=== PATIENT | female | born 1970 | race Caucasian/White ===

== ENCOUNTER 2017-02-25 07:25 | Emergency (ER) | payer MEDICAID ==
[2017-02-25 08:22] LABS: PLATELET COUNT 360 x10^3mcL (130-400); RED CELL DISTRIBUTION WIDTH 13.7 % (11.5-14.5)
[2017-02-25 08:26] LABS: CALCIUM 8.6 mg/dL (8.5-10.1); CARBON DIOXIDE 26.2 mmol/L (21-32); CHLORIDE SERUM 101 mmol/L (98-107); CREATININE SERUM 0.7 mg/dL (0.6-1.0); GFR1 > 60 mL/min; GLUCOSE SERUM 105 mg/dL (74-106); SODIUM SERUM 136 mmol/L (136-145)
[2017-02-25 08:30] LABS: ALKALINE PHOSPHATASE 75 U/L (46-116); ALT/SGPT 59 U/L (14-59); AST/SGOT 36 U/L (15-37); BILIRUBIN TOTAL 0.74 mg/dL (0.20-1.00); LIPASE 120 IU/L (73-393); TOTAL PROTEIN, SERUM 7.8 g/dL (6.4-8.2)
[2017-02-25 08:32] LABS: ALBUMIN 3.3 g/dL (3.4-5.0)
[2017-02-25 09:24] LABS: microscopic required? YES; urine erythrocyte 2+ (NEGATIVE)
[2017-02-25 10:01] LABS: BAND NEUTROPHIL 6 % (0-10); BASOPHIL 0 % (0-2); MONOCYTE 5 % (0-7); PLATELET MORPHOLOGY PLATELETS NORMAL; SEGMENTED NEUTROPHILS 81 % (37-75)
[2017-02-25 11:20] VITALS: BP 129/81
== END 2017-02-25 11:20 | disposition home or self-care (01) ==
LOC: ED 07:25
PROVIDERS: Emergency Medicine
DX: N12 Tubulo-interstitial nephritis, not specified as acute or chronic (principal); J02.9 Acute pharyngitis, unspecified; J45.909 Unspecified asthma, uncomplicated; Z90.49 Acquired absence of other specified parts of digestive tract; Z88.1 Allergy status to other antibiotic agents
CPT/HCPCS: J1885; J1956; J2270; J2405; J3490

== ENCOUNTER 2017-03-29 22:14 | Emergency (ER) | payer OTHER ==
[2017-03-30 00:53] LABS: BASOPHIL % 0.6 % (0-2); PLATELET COUNT 364 x10^3mcL (130-400); RED CELL DISTRIBUTION WIDTH 13.9 % (11.5-14.5)
[2017-03-30 00:58] LABS: UA SPECIFIC GRAVITY 1.015 (1.005-1.035); microscopic required? YES; urine erythrocyte 2+ (NEGATIVE)
[2017-03-30 01:03] LABS: CALCIUM 8.3 mg/dL (8.5-10.1); CARBON DIOXIDE 24.6 mmol/L (21-32); CHLORIDE SERUM 103 mmol/L (98-107); CREATININE SERUM 0.7 mg/dL (0.6-1.0); GFR1 > 60 mL/min; GLUCOSE SERUM 92 mg/dL (74-106); POTASSIUM SERUM 3.9 mmol/L (3.5-5.1); SODIUM SERUM 138 mmol/L (136-145)
[2017-03-30 01:06] LABS: ALBUMIN 3.4 g/dL (3.4-5.0); ALKALINE PHOSPHATASE 70 U/L (46-116); ALT/SGPT 31 U/L (14-59); AST/SGOT 21 U/L (15-37); BILIRUBIN TOTAL 0.31 mg/dL (0.20-1.00); TOTAL PROTEIN, SERUM 7.8 g/dL (6.4-8.2)
[2017-03-30 02:14] VITALS: BP 139/80
== END 2017-03-30 02:12 | disposition home or self-care (01) ==
LOC: ED 22:14
PROVIDERS: Emergency Medicine
DX: M62.830 Muscle spasm of back (principal); R03.0 Elevated blood-pressure reading, without diagnosis of hypertension; R35.0 Frequency of micturition; R39.15 Urgency of urination; J45.909 Unspecified asthma, uncomplicated
CPT/HCPCS: 20552; 36415; J1885; J2001

== ENCOUNTER 2017-10-05 08:18 | Emergency (ER) | payer OTHER ==
[2017-10-05 08:41] VITALS: BP 135/68
== END 2017-10-05 11:44 | disposition home or self-care (01) ==
LOC: ED 08:18
DX: J03.90 Acute tonsillitis, unspecified (principal); J45.909 Unspecified asthma, uncomplicated; I10 Essential (primary) hypertension; Z88.0 Allergy status to penicillin
CPT/HCPCS: J1100

== ENCOUNTER 2018-03-21 09:59 | Emergency (ER) | payer OTHER ==
[~2018-03-21] VITALS: Ht 160 cm; Wt 68.0 kg
[2018-03-21 10:12] VITALS: BP 142/99; Ht 160 cm; Wt 68.0 kg
== END 2018-03-21 11:52 | disposition home or self-care (01) ==
LOC: ED 09:59
DX: J06.9 Acute upper respiratory infection, unspecified (principal); J45.909 Unspecified asthma, uncomplicated; I10 Essential (primary) hypertension; Z88.1 Allergy status to other antibiotic agents
CPT/HCPCS: J7613

== ENCOUNTER 2018-03-23 08:30 | Emergency (ER) | payer OTHER ==
[~2018-03-23] VITALS: Ht 154.9 cm; Wt 68.0 kg
[2018-03-23 08:36] VITALS: Ht 154.9 cm; Wt 68.0 kg
[2018-03-23 09:43] VITALS: BP 137/80
== END 2018-03-23 09:43 | disposition home or self-care (01) ==
LOC: ED 08:30
DX: R05 Cough (principal); J45.909 Unspecified asthma, uncomplicated; I10 Essential (primary) hypertension; Z88.0 Allergy status to penicillin

== ENCOUNTER 2018-03-28 18:42 | Emergency (ER) | payer OTHER ==
[~2018-03-28] VITALS: Ht 154.9 cm; Wt 68.0 kg
[2018-03-28 18:50] VITALS: Ht 154.9 cm; Wt 68.0 kg
[2018-03-28 19:59] VITALS: BP 151/96
== END 2018-03-28 19:59 | disposition home or self-care (01) ==
LOC: ED 18:42
DX: S29.012A Strain of muscle and tendon of back wall of thorax, initial encounter (principal); S20.219A Contusion of unspecified front wall of thorax, initial encounter; S80.02XA Contusion of left knee, initial encounter; J45.909 Unspecified asthma, uncomplicated; I10 Essential (primary) hypertension; Z88.0 Allergy status to penicillin; V89.2XXA Person injured in unspecified motor-vehicle accident, traffic, initial encounter; Y93.89 Activity, other specified; Y92.89 Other specified places as the place of occurrence of the external cause; Y99.8 Other external cause status
CPT/HCPCS: J1885

== ENCOUNTER 2019-03-16 13:56 | Emergency (ER) | payer MEDICAID ==
[~2019-03-16] VITALS: Ht 154.9 cm; Wt 68.1 kg
[2019-03-16 14:00] VITALS: Ht 154.9 cm; Wt 68.1 kg
[2019-03-16 15:29] VITALS: BP 125/88
== END 2019-03-16 15:29 | disposition home or self-care (01) ==
LOC: ED 13:56
DX: G89.18 Other acute postprocedural pain (principal); J45.909 Unspecified asthma, uncomplicated; I10 Essential (primary) hypertension; Z88.1 Allergy status to other antibiotic agents

== ENCOUNTER 2019-03-17 15:27 | Emergency (ER) | payer MEDICAID ==
[~2019-03-17] VITALS: Ht 154.9 cm; Wt 67.1 kg
[2019-03-17 15:33] VITALS: BP 160/70; Ht 154.9 cm; Wt 67.1 kg
== END 2019-03-17 17:18 | disposition home or self-care (01) ==
LOC: ED 15:27
DX: Z48.01 Encounter for change or removal of surgical wound dressing (principal); J45.909 Unspecified asthma, uncomplicated; I10 Essential (primary) hypertension; Z90.89 Acquired absence of other organs

== ENCOUNTER 2019-04-02 15:19 | Emergency (ER) | payer MEDICAID ==
[~2019-04-02] VITALS: Ht 154.9 cm; Wt 68.7 kg
[2019-04-02 15:22] VITALS: BP 106/57; Ht 154.9 cm; Wt 68.7 kg
== END 2019-04-02 17:35 | disposition home or self-care (01) ==
LOC: ED 15:19
DX: L30.4 Erythema intertrigo (principal); J45.909 Unspecified asthma, uncomplicated; I10 Essential (primary) hypertension; Z88.0 Allergy status to penicillin

== ENCOUNTER 2020-07-06 08:21 | Emergency (ER) | payer MEDICAID, SELFPAY ==
[~2020-07-06] VITALS: Ht 154.9 cm; Wt 70.3 kg
[2020-07-06 08:24] VITALS: Ht 154.9 cm; Wt 70.3 kg
[2020-07-06 09:23] VITALS: BP 145/88
== END 2020-07-06 09:23 | disposition home or self-care (01) ==
LOC: ED 08:21
DX: R05 Cough (principal); J45.909 Unspecified asthma, uncomplicated; I10 Essential (primary) hypertension; Z20.828 Contact with and (suspected) exposure to other viral communicable diseases; Z88.1 Allergy status to other antibiotic agents
CPT/HCPCS: U0003-CS

== ENCOUNTER 2020-08-05 09:51 | Emergency (ER) | payer MEDICAID ==
[~2020-08-05] VITALS: Ht 154.9 cm; Wt 70.3 kg
[2020-08-05 09:52] VITALS: Ht 154.9 cm; Wt 70.3 kg
[2020-08-05 13:14] VITALS: BP 139/53
== END 2020-08-05 13:14 | disposition home or self-care (01) ==
LOC: ED 09:51
DX: R05 Cough (principal); J45.909 Unspecified asthma, uncomplicated; I10 Essential (primary) hypertension; Z88.1 Allergy status to other antibiotic agents
CPT/HCPCS: Q0092

== ENCOUNTER 2020-10-21 10:34 | Emergency (ER) | payer MEDICAID ==
[~2020-10-21] VITALS: Ht 157.5 cm; Wt 70.3 kg
[2020-10-21 10:36] VITALS: BP 140/70; Ht 157.5 cm; Wt 70.3 kg
== END 2020-10-21 12:33 | disposition home or self-care (01) ==
LOC: ED 10:34
DX: H60.91 Unspecified otitis externa, right ear (principal)